=== PATIENT | female | born 1950 | race Caucasian/White ===

== ENCOUNTER 2019-06-25 11:43 | Inpatient (IN) | payer OTHER ==
[~2019-06-25] VITALS: Ht 182.9 cm; Wt 104.9 kg
[~2019-06-25 11:43] MED LIST: AMARYL4 MG PO; COUMADIN5 MG PO; ESTER C1 TAB PO; GABAPENTIN100 M2 PO; IMODIUM2 MG PO; LEVAQUIN500 MG PO; LEVOTHYROXINE0.2 M2 PO; LORAZEPAM0.5 MG PO; LOV40I SC; METFORMIN HCL1000 MG PO; OXYBUTYNIN5 M1 PO; PAXIL30 MG PO; PROPRANOLOL HCL10 MG PO; VITAMIN D32000 I2 PO; ZESTRIL20 MG PO; [UNRECOGNIZED DRUG - OTHER] PO
[2019-06-25 12:37] LABS: BASOPHIL % 0.3 % (0-2); PLATELET COUNT 208 x10^3mcL (130-400); RED CELL DISTRIBUTION WIDTH 14.2 % (11.5-14.5)
[2019-06-25 12:48] LABS: CALCIUM 9.3 mg/dL (8.5-10.1); CARBON DIOXIDE 25.8 mmol/L (21-32); CHLORIDE SERUM 98 mmol/L (98-107); CREATININE SERUM 1.8 mg/dL (0.6-1.0); GFR1 30 mL/min; GLUCOSE SERUM 449 mg/dL (74-106); POTASSIUM SERUM 4.8 mmol/L (3.5-5.1); SODIUM SERUM 132 mmol/L (136-145)
[2019-06-25 12:52] LABS: ALKALINE PHOSPHATASE 98 U/L (46-116); ALT/SGPT 50 U/L (14-59); AST/SGOT 224 U/L (15-37); BILIRUBIN TOTAL 0.4 mg/dL (0.20-1.00); TOTAL PROTEIN, SERUM 7.6 g/dL (6.4-8.2)
[2019-06-25 12:56] LABS: ALBUMIN 3.1 g/dL (3.4-5.0)
[2019-06-25 13:31] LABS: AMPHETAMINE QUAL UR NONE DETECTED (See below)
[2019-06-25 14:22] LABS: LIPASE 114 IU/L (73-393)
[2019-06-25 16:25] LABS: microscopic required? YES; urine erythrocyte 3+ (NEGATIVE)
[2019-06-25 16:37] VITALS: Ht 182.9 cm; Wt 104.9 kg
[2019-06-25 16:39] VITALS: BP 174/80
[2019-06-25 21:00] VITALS: BP 139/52
[2019-06-26 05:35] VITALS: BP 106/51
[2019-06-26 05:56] VITALS: BP 121/84
[2019-06-26 06:42] LABS: BASOPHIL % 0.1 % (0-2); PLATELET COUNT 206 x10^3mcL (130-400); RED CELL DISTRIBUTION WIDTH 14.4 % (11.5-14.5)
[2019-06-26 07:00] LABS: BILIRUBIN TOTAL 0.5 mg/dL (0.20-1.00); CALCIUM 8.8 mg/dL (8.5-10.1); CARBON DIOXIDE 29.7 mmol/L (21-32); CREATININE SERUM 1.4 mg/dL (0.6-1.0); MAGNESIUM 1.7 mg/dL (1.8-2.4); POTASSIUM SERUM 4.6 mmol/L (3.5-5.1); TOTAL PROTEIN, SERUM 6.7 g/dL (6.4-8.2)
[2019-06-26 07:02] LABS: ALBUMIN 2.6 g/dL (3.4-5.0)
[2019-06-26 07:20] VITALS: BP 148/62
[2019-06-26 11:52] VITALS: BP 131/69
[2019-06-26 16:50] VITALS: BP 145/75
[2019-06-26 20:01] VITALS: BP 148/70
[2019-06-27 05:04] VITALS: BP 137/69
[2019-06-27 06:41] LABS: BASOPHIL % 0.2 % (0-2); PLATELET COUNT 168 x10^3mcL (130-400); RED CELL DISTRIBUTION WIDTH 14.4 % (11.5-14.5)
[2019-06-27 07:28] LABS: CALCIUM 8.9 mg/dL (8.5-10.1); CARBON DIOXIDE 26.4 mmol/L (21-32); CREATININE SERUM 1.2 mg/dL (0.6-1.0); MAGNESIUM 2.2 mg/dL (1.8-2.4)
[2019-06-27 08:07] VITALS: BP 146/62
[2019-06-27 12:03] VITALS: BP 132/70
[2019-06-27 16:44] VITALS: BP 150/73
[2019-06-27 21:40] VITALS: BP 137/65
[2019-06-28 05:16] VITALS: BP 149/69
[2019-06-28 05:18] VITALS: BP 146/73
[2019-06-28 08:09] VITALS: BP 142/69
[2019-06-28 12:04] VITALS: BP 148/58
[2019-06-28 16:32] VITALS: BP 147/63
[2019-06-28 20:35] VITALS: BP 143/62
[2019-06-29 05:10] VITALS: BP 147/64
[2019-06-29 08:28] VITALS: BP 152/69
[2019-06-29 12:13] VITALS: BP 157/89
[2019-06-29 16:58] VITALS: BP 135/70
[2019-06-29 16:59] VITALS: BP 155/72
[2019-06-29 20:33] VITALS: BP 145/66
[2019-06-30 05:33] VITALS: BP 148/75
[2019-06-30 07:24] VITALS: BP 150/78
[2019-06-30 12:36] VITALS: BP 151/72
[2019-06-30] MEDS ORDERED: XANAX0.5 MG PO (13:52)
[2019-06-30] MEDS ORDERED: CATAPRES0.1 MG PO (13:53)
== END 2019-06-30 15:58 | DRG 917 ==
LOC: ED 11:43 → DU 13:55
PROVIDERS: Emergency Medicine; ADMIT Internal Medicine Pulmonary Disease
DX: T42.6X2A Poisoning by other antiepileptic and sedative-hypnotic drugs, intentional self-harm, initial encounter (principal); G93.41 Metabolic encephalopathy; N17.9 Acute kidney failure, unspecified; T42.4X2A Poisoning by benzodiazepines, intentional self-harm, initial encounter; S90.812A Abrasion, left foot, initial encounter; S90.811A Abrasion, right foot, initial encounter; S10.93XA Contusion of unspecified part of neck, initial encounter; S80.02XA Contusion of left knee, initial encounter; E11.65 Type 2 diabetes mellitus with hyperglycemia; E86.0 Dehydration; D72.829 Elevated white blood cell count, unspecified; I10 Essential (primary) hypertension; F41.9 Anxiety disorder, unspecified; E03.9 Hypothyroidism, unspecified; E66.9 Obesity, unspecified; Z68.32 Body mass index [BMI] 32.0-32.9, adult; Z79.84 Long term (current) use of oral hypoglycemic drugs; W06.XXXA Fall from bed, initial encounter; Y92.009 Unspecified place in unspecified non-institutional (private) residence as the place of occurrence of the external cause
CPT/HCPCS: 82962; 90732; 97110-GP; 97116-GP; 97530-GP; G0378; G0480; J1650; J1815; J2405; J3475; J7030; Q0092